=== PATIENT | female | born 1975 | race Hispanic/Latino ===

== ENCOUNTER 2018-01-27 11:32 | Emergency (ER) | payer SELFPAY ==
[2018-01-27] MEDS ORDERED: HALDOL IM PRN (13:09)
[2018-01-27] MEDS ORDERED: ATIVAN IM PRN (13:09)
--- NOTE | 2018-01-27 13:10 | Emergency Department Report ---
ED Psych HPI - General Chief Complaint: Psych Stated Complaint: EVALUATION Time Seen by Provider: 01/27/18 12:51 Source: patient, police, RN notes reviewed Mode of arrival: Ambulatory Limitations: No Limitations - History of Present Illness Initial Comments: This is a 43-year-old female who is not known to this provider previously, who presents to the ER with a complaint of suicidality. The patient has reportedly been off of her psychiatric medications for a few weeks. She's not been able to get follow-up with her primary care doctor or psychiatrist for evaluation. She endorses that she does not have a concrete plan, but she has been researching online how to make her look like an accident. Her symptoms are constant, painless, did not radiate anywhere, and do not have exacerbating or relieving factors. MD Complaint: suicidal ideation, feels depressed -: Gradual Associated Psychiatric Symptoms: suicidal ideation History of same: Yes Quality: constant Improves With: none Worsens With: none Associated Symptoms: denies: confusion, headache If Self Harm: admits thoughts of - Related Data Allergies Allergy/AdvReac Type Severity Reaction Status Date / Time No Known Allergies Allergy Unverified 01/27/18 13:33 ED Review of Systems ROS: Stated complaint: EVALUATION Other details as noted in HPI Constitutional: denies: fever Eyes: denies: eye discharge ENT: denies: epistaxis Respiratory: denies: cough Cardiovascular: denies: chest pain Gastrointestinal: denies: abdominal pain Genitourinary: denies: dysuria Musculoskeletal: denies: back pain Neurological: denies: as per HPI Psychiatric: anxiety, depression, suicidal thoughts. denies: as per HPI, homicidal thoughts ED Past Medical Hx - Past Medical History Previous Medical History?: Yes - Surgical History Past Surgical History?: No Additional Surgical History: right pointer finger tendon repair - Social History Smoking Status: Unknown if ever smoked Substance Use Type: None ED Physical Exam - General Limitations: No Limitations General appearance: alert, in no apparent distress - Head Head exam: Present: atraumatic, normocephalic - Eye Eye exam: Present: normal appearance, EOMI. Absent: nystagmus - ENT ENT exam: Present: normal exam, normal orophraynx, mucous membranes moist, normal external ear exam - Neck Neck exam: Present: normal inspection, full ROM. Absent: tenderness, meningismus - Respiratory Respiratory exam: Present: normal lung sounds bilaterally. Absent: respiratory distress - Cardiovascular Cardiovascular Exam: Present: regular rate, normal rhythm, normal heart sounds. Absent: bradycardia, tachycardia, irregular rhythm, systolic murmur, diastolic murmur, rubs, gallop - GI/Abdominal GI/Abdominal exam: Present: soft. Absent: distended, tenderness, guarding, rebound, rigid, pulsatile mass - Extremities Exam Extremities exam: Present: normal inspection, full ROM, normal capillary refill , other (2+ pulses noted in the bilateral upper, lower extremities. Compartments soft. No long bony tenderness. The pelvis is stable.). Absent: tenderness, pedal edema, joint swelling, calf tenderness - Back Exam Back exam: Present: normal inspection, full ROM. Absent: tenderness, CVA tenderness (R), paraspinal tenderness, vertebral tenderness - Neurological Exam Neurological exam: Present: alert, oriented X3, CN II-XII intact, normal gait, other (Extraocular movements intact. Tongue midline. No facial droop. Facial sensation intact to light touch in the V1, V2, V3 distribution bilaterally. 5 and 5 strength in 4 extremities.. Sensation is intact to light touch in 4 extremities.). Absent: motor sensory deficit - Psychiatric Psychiatric exam: Present: normal affect, normal mood - Skin Skin exam: Present: warm, dry, intact, normal color. Absent: rash ED Course Vital Signs 01/27/18 12:32 Temperature 98.0 F Pulse Rate 96 H Respiratory 18 Rate Blood Pressure 110/71 O2 Sat by Pulse 100 Oximetry ED Medical Decision Making - Lab Data Result diagrams: 01/27/18 14:12 01/27/18 14:12 Vital Signs 01/27/18 12:32 Temperature 98.0 F Pulse Rate 96 H Respiratory 18 Rate Blood Pressure 110/71 O2 Sat by Pulse 100 Oximetry Lab Results 01/27/18 01/27/18 01/27/18 Range/Units 14:12 14:12 14:12 WBC (4.5-11.0) K/mm3 RBC (3.65-5.03) M/mm3 Hgb (10.1-14.3) gm/dl Hct (30.3-42.9) % MCV (79-97) fl MCH (28-32) pg MCHC (30-34) % RDW (13.2-15.2) % Plt Count (140-440) K/mm3 Sodium 137 (137-145) mmol/L Potassium 4.0 (3.6-5.0) mmol/L Chloride 101.5 (98-107) mmol/L Carbon Dioxide 24 (22-30) mmol/L Anion Gap 16 mmol/L BUN 9 (7-17) mg/dL Creatinine 0.7 (0.7-1.2) mg/dL Estimated GFR > 60 ml/min BUN/Creatinine Ratio 13 % Glucose 101 H (65-100) mg/dL Calcium 8.9 (8.4-10.2) mg/dL Total Bilirubin 0.20 (0.1-1.2) mg/dL AST 18 (5-40) units/L ALT 8 (7-56) units/L Alkaline Phosphatase 39 (35-129) units/L Total Creatine Kinase (30-135) units/L Total Protein 6.7 (6.3-8.2) g/dL Albumin 3.9 (3.9-5) g/dL Albumin/Globulin Ratio 1.4 % HCG, Quant (0-4) mIU/mL Urine Color (Yellow) Urine Turbidity (Clear) Urine pH (5.0-7.0) Ur Specific [place] (1.003-1.030) Urine Protein (Negative) mg/dL Urine Glucose (UA) (Negative) mg/dL Urine Ketones (Negative) mg/dL Urine Blood (Negative) Urine Nitrite (Negative) Urine Bilirubin (Negative) Urine Urobilinogen (<2.0) mg/dL Ur Leukocyte Esterase (Negative) Urine WBC (Auto) (0.0-6.0) /HPF Urine RBC (Auto) (0.0-6.0) /HPF U Epithel Cells (Auto) (0-13.0) /HPF Urine Bacteria (Auto) (Negative) /HPF Urine HCG, Qual (Negative) Salicylates < 0.3 L (2.8-20.0) mg/dL Urine Opiates Screen Urine Methadone Screen Acetaminophen < 5.0 L (10.0-30.0) ug/mL Ur Barbiturates Screen Ur Phencyclidine Scrn Ur Amphetamines Screen U Benzodiazepines Scrn Urine Cocaine Screen U Marijuana (THC) Screen Drugs of Abuse Note Plasma/Serum Alcohol (0-0.07) % 01/27/18 01/27/18 01/27/18 Range/Units 14:12 14:12 14:12 WBC 6.2 (4.5-11.0) K/mm3 RBC 4.18 (3.65-5.03) M/mm3 Hgb 13.0 (10.1-14.3) gm/dl Hct 36.8 (30.3-42.9) % MCV 88 (79-97) fl MCH 31 (28-32) pg MCHC 35 H (30-34) % RDW 13.5 (13.2-15.2) % Plt Count 309 (140-440) K/mm3 Sodium (137-145) mmol/L Potassium (3.6-5.0) mmol/L Chloride (98-107) mmol/L Carbon Dioxide (22-30) mmol/L Anion Gap mmol/L BUN (7-17) mg/dL Creatinine (0.7-1.2) mg/dL Estimated GFR ml/min BUN/Creatinine Ratio % Glucose (65-100) mg/dL Calcium (8.4-10.2) mg/dL Total Bilirubin (0.1-1.2) mg/dL AST (5-40) units/L ALT (7-56) units/L Alkaline Phosphatase (35-129) units/L Total Creatine Kinase 11 L (30-135) units/L Total Protein (6.3-8.2) g/dL Albumin (3.9-5) g/dL Albumin/Globulin Ratio % HCG, Quant (0-4) mIU/mL Urine Color (Yellow) Urine Turbidity (Clear) Urine pH (5.0-7.0) Ur Specific [place] (1.003-1.030) Urine Protein (Negative) mg/dL Urine Glucose (UA) (Negative) mg/dL Urine Ketones (Negative) mg/dL Urine Blood (Negative) Urine Nitrite (Negative) Urine Bilirubin (Negative) Urine Urobilinogen (<2.0) mg/dL Ur Leukocyte Esterase (Negative) Urine WBC (Auto) (0.0-6.0) /HPF Urine RBC (Auto) (0.0-6.0) /HPF U Epithel Cells (Auto) (0-13.0) /HPF Urine Bacteria (Auto) (Negative) /HPF Urine HCG, Qual (Negative) Salicylates (2.8-20.0) mg/dL Urine Opiates Screen Urine Methadone Screen Acetaminophen (10.0-30.0) ug/mL Ur Barbiturates Screen Ur Phencyclidine Scrn Ur Amphetamines Screen U Benzodiazepines Scrn Urine Cocaine Screen U Marijuana (THC) Screen Drugs of Abuse Note Plasma/Serum Alcohol < 0.01 (0-0.07) % 01/27/18 01/27/18 01/27/18 Range/Units 14:12 14:16 14:16 WBC (4.5-11.0) K/mm3 RBC (3.65-5.03) M/mm3 Hgb (10.1-14.3) gm/dl Hct (30.3-42.9) % MCV (79-97) fl MCH (28-32) pg MCHC (30-34) % RDW (13.2-15.2) % Plt Count (140-440) K/mm3 Sodium (137-145) mmol/L Potassium (3.6-5.0) mmol/L Chloride (98-107) mmol/L Carbon Dioxide (22-30) mmol/L Anion Gap mmol/L BUN (7-17) mg/dL Creatinine (0.7-1.2) mg/dL Estimated GFR ml/min BUN/Creatinine Ratio % Glucose (65-100) mg/dL Calcium (8.4-10.2) mg/dL Total Bilirubin (0.1-1.2) mg/dL AST (5-40) units/L ALT (7-56) units/L Alkaline Phosphatase (35-129) units/L Total Creatine Kinase (30-135) units/L Total Protein (6.3-8.2) g/dL Albumin (3.9-5) g/dL Albumin/Globulin Ratio % HCG, Quant < 2 (0-4) mIU/mL Urine Color Colorless (Yellow) Urine Turbidity Clear (Clear) Urine pH 8.0 H (5.0-7.0) Ur Specific [place] 1.003 (1.003-1.030) Urine Protein <15 mg/dl (Negative) mg/dL Urine Glucose (UA) Neg (Negative) mg/dL Urine Ketones Neg (Negative) mg/dL Urine Blood Neg (Negative) Urine Nitrite Neg (Negative) Urine Bilirubin Neg (Negative) Urine Urobilinogen < 2.0 (<2.0) mg/dL Ur Leukocyte Esterase Neg (Negative) Urine WBC (Auto) 0.0 (0.0-6.0) /HPF Urine RBC (Auto) < 1.0 (0.0-6.0) /HPF U Epithel Cells (Auto) < 1.0 (0-13.0) /HPF Urine Bacteria (Auto) 2+ (Negative) /HPF Urine HCG, Qual Negative (Negative) Salicylates (2.8-20.0) mg/dL Urine Opiates Screen Presumptive negative Urine Methadone Screen Presumptive negative Acetaminophen (10.0-30.0) ug/mL Ur Barbiturates Screen Presumptive negative Ur Phencyclidine Scrn Presumptive negative Ur Amphetamines Screen Presumptive negative U Benzodiazepines Scrn Presumptive negative Urine Cocaine Screen Presumptive negative U Marijuana (THC) Screen Presumptive negative Drugs of Abuse Note Disclamer Plasma/Serum Alcohol (0-0.07) % - Medical Decision Making Differential diagnosis, including but not limited to: Suicidality, depression, medical clearance for psychiatric placement Assessment and plan: 43-year-old female with suicidality who is currently looking up online how to make her look like an accident. She is afebrile with reassuring vital signs, clinically sober, walks with a steady gait, and has unremarkable physical, laboratory, and neurologic examination. She requires 1013 and psychiatric stabilization. She is medically stable for psychiatric consult, placement and consultation at this time. Critical care attestation.: If time is entered above; I have spent that time in minutes in the direct care of this critically ill patient, excluding procedure time. ED Disposition Clinical Impression: Medical clearance for psychiatric admission Disposition: [id number]/[id number] PSY HOSP/PSY UNIT Is pt being admited?: No Does the pt Need Aspirin: No Condition: Good Referrals: PRIMARY CARE, [Primary Care Provider] - 3-5 Days
[2018-01-27 14:28] LABS: Hematocrit 36.8 % (30.3-42.9); Mean Corpuscular HGB Conc 35 % (30-34); Mean Corpuscular Hemoglobin 31 pg (28-32); Mean Corpuscular Volume 88 fl (79-97); Platelet Count 309 K/mm3 (140-440); Red Blood Count 4.18 M/mm3 (3.65-5.03); Red Cell Distribution Width 13.5 % (13.2-15.2)
[2018-01-27 14:43] LABS: Alanine Aminotransferase 8 units/L (7-56); Albumin 3.9 g/dL (3.9-5); BUN/Creatinine Ratio 13; Blood Urea Nitrogen 9 mg/dL (7-17); Calcium 8.9 mg/dL (8.4-10.2); Hemolysis Index 7
[2018-01-27 14:57] LABS: Bacteria,Urine 2+ /HPF (Negative); Bilirubin,Urine NEG (Negative); Blood,Urine NEG (Negative); Color,Urine Colorless (Yellow); Protein,Urine <15 mg/dL mg/dL (Negative); RBC,Urine < 1.0 /HPF (0.0-6.0); Urobilinogen,Urine < 2.0 mg/dL (<2.0)
[2018-01-27 15:02] LABS: Amphetamine Screen,Urine PRESUMPTIVE NEGATIVE; Benzodiazepines Screen,Urine PRESUMPTIVE NEGATIVE; Cannabinoid Screen,Urine PRESUMPTIVE NEGATIVE; Cocaine Screen,Urine PRESUMPTIVE NEGATIVE; Methadone Screen,Urine PRESUMPTIVE NEGATIVE; Opiate Screen,Urine PRESUMPTIVE NEGATIVE
[2018-01-27 15:04] LABS: HCG Qualitative,Urine Negative (Negative)
--- NOTE | 2018-01-28 16:13 | Consultation ---
History of Present Illness - Reason for Consult Consult date: 01/28/18 Reason for consult: Mental Health Evaluation Requesting physician: VALENTE SEGURA - Chief Complaint Chief complaint: "I need my medication" - History of Present Psychiatric Illness 43-year-old white female who presents to the ER with a complaint of suicidality. Today the patient is calm and cooperative during the assessment. She stated that she was suicidal the past few days because she had not taken her medication (Paxil) for several weeks. She would not confirm or deny that she was looking up information on the internet about how to kill herself so it can look like an accident. She stated that depression has been an issue for her for several yrs. She could not ID any triggers that exacerbated her depression other not taking her medication. She was vague when she was asked about being suicidal. She denies HI's and AVH's. She denies erratic sleep and a poor appetite. She denies recreational drug use and alcohol consumption (etoh). Medications and Allergies Allergies Allergy/AdvReac Type Severity Reaction Status Date / Time No Known Allergies Allergy Unverified 01/27/18 13:33 Active Meds: Active Medications Haloperidol Lactate (Haldol) 5 mg IM Q6HR PRN PRN Reason: Agitation Lorazepam (Ativan) 2 mg IM Q4HR PRN PRN Reason: Agitation Past psychiatric history - Past Medical History Past Medical History: No medical history Past Surgical History: No surgical history - past Psychiatric treatment and history psychiatric treatment history: Seen outpatient for depression. Denies a fam psy hx. - Social History Social history: Lives alone Mental Status Exam - Vital signs Last Vital Signs Temp 98.2 F 01/27/18 20:00 Pulse 85 01/27/18 20:00 Resp 20 01/27/18 20:00 BP 105/61 01/27/18 20:00 Pulse Ox 98 01/27/18 20:00 - Exam Narrative exam: MSE: Appearance: calm, cooperative Behavior: regular eye contact Speech: regular rate and tone Mood: "okay" Affect: congruent to mood Thought Process: circumstantial Thought Content: denies HI's and AVH's Motor Activity: ambulatory Cognition: A/O x 3 Insight: variable Judgment: variable Results Result Diagrams: 01/27/18 14:12 01/27/18 14:12 All other labs normal. Assessment and Plan Assessment and plan: Impression: MDD. Today the patient is calm and cooperative during the assessment. The patient is vague about being suicidal when asked. DDx: R/O Bipolar DO Recommendation/Plan: Continue 1013 with placement to inpatient psy services. Start Paxil 20 mg PO daily for depression. Discussed possible suicidality/ medication induced carl with patient reference Paxil.
[2018-01-28] MEDS: PAXIL PO SCH (20:01)
[2018-01-29] MEDS: PAXIL PO SCH (10:53)
--- NOTE | 2018-01-29 14:44 | Progress Note ---
Subjective - Reason for Consult Consult date: 01/29/18 Reason for consult: Psychiatric Follow-up Evaluation - Chief Complaint Chief complaint: "Good" Patient is a 43-year-old white female who presents to the ER with a complaint of suicidality. Today the patient is calm and cooperative during the assessment. She stated that she was suicidal the past few days because she had not taken her medication (Paxil) for several weeks. She would not confirm or deny that she was looking up information on the internet about how to kill herself so it can look like an accident. Today, she reports " I don't have any suicidal thoughts now. The depression is much better but I do have some anxiety. I'm worried about my dogs at home." She later states " She reports good sleep and appetite. She denies SI/HI, A/VH, and delusions. She reports medication compliance. No side effects noted/reported. Mental Status Exam - Vital signs Last Vital Signs Temp 97.7 F 01/29/18 09:00 Pulse 85 01/29/18 09:00 Resp 18 01/29/18 09:00 BP 120/68 01/29/18 09:00 Pulse Ox 98 01/29/18 09:00 - Exam Narrative exam: Mental Status Exam General Appearance: Causally Dressed-hospital gown Eye Contact: Intermittent Orientation: Alert and oriented x 4 ( person, place, time, and situation). Attitude/Behavior: Cooperative, guarded, evasive Sensorium: Clear Psychomotor & Musculoskeletal Activity: Laying in bed Mood: "Good" Affect: Constricted Speech/Language: Normal rate and tone Thought Processes: Organized, circumstantial Thought Content: Reality oriented Perception: Patient denies A/V/T hallucinations Concentration/Attention: Impaired Suicidal Ideations/Plan: Patient denies. Homicidal Ideations/Plan: Patient denies. Judgment: Variable Insight: Variable Assessment and Plan Impression: MDD. Today the patient is calm and cooperative during the assessment. She continues to be guarded and evasive. Today she denies SI/HI, A/ VH, and delusions. DDx: R/O Bipolar DO Recommendation/Plan: 1. Continue 1013 with placement to inpatient psychiatric services. 2. Continue Paxil 20 mg PO daily for depression. Discussed possible suicidality/ medication induced carl with patient reference Paxil. 3. Will monitor mood, sleep, appetite, compliance, and side effects.
[2018-01-30] MEDS: PAXIL PO SCH (12:01)
--- NOTE | 2018-01-30 14:33 | Progress Note ---
Subjective - Reason for Consult Consult date: 01/30/18 Reason for consult: Psychiatry Follow-up - Chief Complaint Chief complaint: "I feel very well" Patient is a 43-year-old white female who presents to the ER with a complaint of suicidality. Today the patient is calm and cooperative during the assessment. She stated that she did look up material on the internet reference suicide plans. She stated that she was "stressed. " She stated that it's other ways to handle stress. Per collateral information from her father Allan Bermudez at [phone], he stated that he will be his daughter's support system. He denies that the patient has ever attempted suicide in the past. He stated that he feel safe for his daughter to return to her home. He stated that he can pick her up from the ER once she discharged. The patient denies SI/HI's and AVH's. She denies any side effects of her medication. Mental Status Exam - Vital signs Last Vital Signs Temp 99.2 F 01/30/18 11:00 Pulse 105 H 01/30/18 11:00 Resp 18 01/30/18 12:23 BP 102/68 01/30/18 11:00 Pulse Ox 98 01/30/18 12:23 - Exam Narrative exam: MSE: Appearance: calm, cooperative Behavior: regular eye contact Speech: regular rate and tone Mood: "okay" Affect: congruent to mood Thought Process: logical Thought Content: denies SI/HI's and AVH's Motor Activity: ambulatory Cognition: A/O x 3 Insight: appropriate Judgment: appropriate Assessment and Plan Impression: MDD. Today the patient is calm and cooperative during the assessment. The patient is calm and cooperative during the assessment. The patient is no threat to self. DDx: R/O Bipolar DO Recommendation/Plan: Continue 1013 with placement to inpatient psy services. Continue Paxil 20 mg PO daily for depression. Discussed possible suicidality/ medication induced carl with patient reference Paxil. Discussed generalized coping skills with the patient. The patient can follow up at [facility] for outpatient psy services.
[2018-01-30 20:02] VITALS: BP 114/77
== END 2018-01-30 19:57 ==
LOC: ED 11:32 → EEVIPCON 11:32 → ED 01-30 19:57
DX: F32.9 Major depressive disorder, single episode, unspecified (principal)
CPT/HCPCS: 36415; 80053; 80307; 81001; 81025; 82550; 84702; 85027; 99285; G0480; 80320